=== PATIENT | female | born 2000 | race Caucasian/White ===

== ENCOUNTER 2018-11-17 13:14 | Emergency (ER) | payer BC | END 2018-11-17 14:41 | disposition home or self-care (01) | LOC: FTE 14:41 | DX: R21 Rash and other nonspecific skin eruption (principal); J45.909 Unspecified asthma, uncomplicated | CPT/HCPCS: 99282 ==

== ENCOUNTER 2018-11-28 21:07 | Emergency (ER) | payer BC ==
[2018-11-28] MEDS: ALBUTEROL 0.083% (NEB) 2.5 MG/3 ML AMP HHN (22:20)
[2018-11-28] MEDS: IPRATROPIUM (NEB) 0.5 MG/2.5 ML AMP HHN (22:20)
[2018-11-28] MEDS: DIPHENHYDRAMINE 25 MG CAP PO (22:30)
[2018-11-28] MEDS: FAMOTIDINE 20 MG TAB PO (22:30)
[2018-11-28] MEDS: DEXAMETHASONE 10 MG/ML 1 ML INJ IM (22:36)
== END 2018-11-28 22:49 | disposition home or self-care (01) ==
LOC: FTE 21:07
DX: J45.901 Unspecified asthma with (acute) exacerbation (principal)
CPT/HCPCS: 94664; 96372; 99284-25